=== PATIENT | male | born 1930 | race Caucasian/White ===

== ENCOUNTER 2019-06-27 10:59 | Outpatient (CLI) | payer MEDICARE ==
--- NOTE | 2019-06-27 12:02 | CT ---
LUMBAR SPINE CT WITHOUT CONTRAST: HISTORY: Stenosis. Chronic low back pain x15 years. FINDINGS: There is appropriate attenuation of the visualized solid organs. Left extrarenal pelvis is noted Atherosclerosis of a nonaneurysmal aorta. Symmetric attenuation of the paraspinal muscles. Mild leftward curvature of the lumbar spine. There are 5 lumbar-type vertebrae. Straightening of normal lumbar lordosis, without evidence of spondylolisthesis or spondylolysis. Vacuum disc phenomenon at L1-L2, L3-L4, L4-L5 and L5-S1. Lumbar spine vertebral body height is maintained. No fracture. Sacral alae are preserved. Sacroiliac joints are patent and symmetric. T11-T12: Mild central canal stenosis due to broad-based disc osteophyte complex. T12-L1: Left and right paracentral disc bulges with mild central canal stenosis and mild bilateral fo raminal narrowing. L1-L2: Vacuum disc phenomenon. Broad-based disc bulge with mild central canal stenosis. Bilaterally t he neural foramina are patent. L2-L3: Broad-based disc bulge with mild loss of disc space height. Mild central canal stenosis due to disc material as well as posterior element hypertrophy. Bilaterally the neural foramina are patent. L3-L4: Vacuum disc phenomenon. Broad-based disc bulge, ligament flavum thickening and facet hypertrop hy result in moderate central canal stenosis. Mild bilateral neural foraminal narrowing. L4-L5: Vacuum disc phenomenon. Broad-based disc bulge, ligament flavum thickening and facet hypertrop hy result in moderate to severe central canal stenosis. Moderate to severe bilateral neural foraminal narrowing. L5-S1: Vacuum disc phenomenon. Broad-based disc bulge abuts the thecal sac and encroaches upon the le ft and right subarticular zone. Disc material abuts but does not obscure either traversing S1 nerve root. Moderate to severe right and moderate left neural foraminal narrowing. 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 Transcribed Date/Time: 06/27/2019 12:08 PM
== END 2019-06-27 11:00 | disposition home or self-care (01) ==
LOC: SCSCT 10:59
PROVIDERS: ATTEND Specialist
DX: M48.062 Spinal stenosis, lumbar region with neurogenic claudication (principal); M47.816 Spondylosis without myelopathy or radiculopathy, lumbar region
CPT/HCPCS: 72131